=== PATIENT | male | born 1960 | race Caucasian/White ===

== ENCOUNTER 2022-04-16 21:30 | Emergency (ER) | payer OTHER ==
[2022-04-16 21:40] VITALS: BP 127/86; PULSE 91; TEMP 97.9; BMI 23.7
== END 2022-04-17 01:34 | disposition home or self-care (01) ==
LOC: JER 21:30
DX: S80.911A Unspecified superficial injury of right knee, initial encounter (principal); W10.9XXA Fall (on) (from) unspecified stairs and steps, initial encounter
CPT/HCPCS: 72170-TC-FY; 73552-TC-RT-FY; 73562-TC-RT-FY; 99285-25

== ENCOUNTER 2022-04-30 10:33 | Inpatient (IN) | payer OTHER ==
[2022-04-30] MEDS ORDERED: morphine CARPU-JECT 4 MG/1 ML DISP.SYRIN IVPUSH ONE (11:12)
[2022-04-30 12:03] LABS: BASO % 0.7 % (0-2.0); EOS % 1.9 % (0-4.5); HEMOGLOBIN 14.4 GM/dL (11.7-16.9); LYMPH % 17.8 % (8-40); MCH 28.8 pg (25.7-33.7); MCHC 33.5 g/dl (32.0-35.9); MEAN PLT VOLUME 6.6 fl (7.5-11.1); MONO % 6.5 % (3.8-10.2); NEUT % 73.1 % (42.8-82.8); PLATELET COUNT 306 10^3/uL (134-434); RDW 14.8 % (11.9-15.9); WHITE BLOOD COUNT 11.6 K/mm3 (4.0-10.0)
[2022-04-30] MEDS ORDERED: morphine SULFATE 4 MG/ML VIAL ONE (12:17)
[2022-04-30 12:23] LABS: INR 0.97 (0.83-1.09); PROTHROMBIN TIME (PATIENT) 11.2 SEC (9.7-13.0)
[2022-04-30 12:26] LABS: ACTIVATED PTT 26.4 SECONDS (25.2-36.5)
[2022-04-30 12:34] LABS: CALCIUM 9.4 mg/dL (8.5-10.1)
[2022-04-30 12:35] LABS: ALBUMIN 4.3 g/dl (3.4-5.0); BLOOD UREA NITROGEN 32.4 mg/dL (7-18)
[2022-04-30 12:38] LABS: CREATININE 1.1 mg/dL (0.55-1.3)
[2022-04-30 12:40] LABS: BILIRUBIN,TOTAL 0.3 mg/dL (0.2-1); TOT PROT 7.2 g/dl (6.4-8.2)
[2022-04-30] MEDS ORDERED: ACETAMINOPHEN 1000 MG/100 ML BAG IVPB PRN (12:47)
[2022-04-30] MEDS: MELATONIN 5 MG TABLETS PO PRN (22:34)
[2022-04-30] MEDS: clonazePAM 2 MG TABLET PO SCH (22:34)
[2022-04-30] MEDS: traZODone HCL 100 MG TABLET (FP) PO SCH (22:34)
[2022-05-01] MEDS ORDERED: IBUPROFEN 800 MG/8 ML IJ IVPB ONE (04:38)
[2022-05-01] MEDS: clonazePAM 2 MG TABLET PO SCH ×2 (09:27→21:59)
[2022-05-01 14:52] VITALS: BMI 21.7
[2022-05-01] MEDS ORDERED: ACETAMINOPHEN 325 MG TABLET (FP) PO PRN (18:04)
[2022-05-01] MEDS: traZODone HCL 100 MG TABLET (FP) PO SCH (21:59)
[2022-05-01] MEDS: HEPARIN NA (PORCINE) 5,000 UNITS/ML 1ML VIAL SQ SCH (21:59)
[2022-05-01] MEDS: MELATONIN 5 MG TABLETS PO PRN (21:59)
[2022-05-02] MEDS ORDERED: ACETAMINOPHEN 1000 MG/100 ML BAG IVPB ONE (00:07)
[2022-05-02 08:44] LABS: BASO % 0.7 % (0-2.0); EOS % 2.5 % (0-4.5); HEMATOCRIT 38.1 % (35.4-49); HEMOGLOBIN 12.8 GM/dL (11.7-16.9); LYMPH % 23.7 % (8-40); MCH 29.1 pg (25.7-33.7); MCHC 33.5 g/dl (32.0-35.9); MEAN CELL VOLUME 86.8 fl (80-96); MEAN PLT VOLUME 7.2 fl (7.5-11.1); MONO % 7.7 % (3.8-10.2); NEUT % 65.4 % (42.8-82.8); PLATELET COUNT 264 10^3/uL (134-434); RBC 4.39 M/mm3 (4.00-5.60); RDW 14.5 % (11.9-15.9); WHITE BLOOD COUNT 9.6 K/mm3 (4.0-10.0)
[2022-05-02 09:04] LABS: CALCIUM 9.2 mg/dL (8.5-10.1)
[2022-05-02 09:05] LABS: ALBUMIN 3.7 g/dl (3.4-5.0); BLOOD UREA NITROGEN 33.2 mg/dL (7-18)
[2022-05-02 09:08] LABS: CREATININE 1.1 mg/dL (0.55-1.3)
[2022-05-02 09:10] LABS: BILIRUBIN,TOTAL 0.3 mg/dL (0.2-1); TOT PROT 6.3 g/dl (6.4-8.2)
[2022-05-02] MEDS: HEPARIN NA (PORCINE) 5,000 UNITS/ML 1ML VIAL SQ SCH ×2 (11:13→21:16)
[2022-05-02] MEDS: clonazePAM 2 MG TABLET PO SCH ×2 (11:14→21:16)
[2022-05-02] MEDS: traZODone HCL 100 MG TABLET (FP) PO SCH (21:16)
[2022-05-02] MEDS: MELATONIN 5 MG TABLETS PO PRN (21:16)
[2022-05-03] MEDS: DOCUSATE SODIUM 100 MG CAPSULE (FP) PO SCH ×3 (09:25→21:36)
[2022-05-03] MEDS: POLYETHYLENE GLYCOL (HEALTHYLAX) 3350 17 GM PACKET PO SCH (09:25)
[2022-05-03] MEDS: clonazePAM 2 MG TABLET PO SCH ×2 (09:25→21:36)
[2022-05-03] MEDS: HEPARIN NA (PORCINE) 5,000 UNITS/ML 1ML VIAL SQ SCH ×2 (09:25→21:36)
[2022-05-03 10:55] LABS: BASO % 0.4 % (0-2.0); EOS % 2.2 % (0-4.5); HEMATOCRIT 37.9 % (35.4-49); HEMOGLOBIN 12.8 GM/dL (11.7-16.9); MCH 29.2 pg (25.7-33.7); MCHC 33.7 g/dl (32.0-35.9); MEAN CELL VOLUME 86.4 fl (80-96); MEAN PLT VOLUME 7.4 fl (7.5-11.1); MONO % 8.9 % (3.8-10.2); NEUT % 73.5 % (42.8-82.8); PLATELET COUNT 243 10^3/uL (134-434); RBC 4.39 M/mm3 (4.00-5.60); RDW 14.7 % (11.9-15.9); WHITE BLOOD COUNT 9.9 K/mm3 (4.0-10.0)
[2022-05-03 11:01] LABS: INR 0.97 (0.83-1.09); PROTHROMBIN TIME (PATIENT) 11.2 SEC (9.7-13.0)
[2022-05-03 11:19] LABS: CALCIUM 9.3 mg/dL (8.5-10.1)
[2022-05-03 11:20] LABS: ALBUMIN 3.7 g/dl (3.4-5.0); BLOOD UREA NITROGEN 32.8 mg/dL (7-18)
[2022-05-03 11:21] LABS: MAGNESIUM 1.8 mg/dL (1.8-2.4)
[2022-05-03 11:23] LABS: CREATININE 0.9 mg/dL (0.55-1.3)
[2022-05-03 11:24] LABS: BILIRUBIN,TOTAL 0.5 mg/dL (0.2-1); TOT PROT 6.6 g/dl (6.4-8.2)
[2022-05-03] MEDS: traZODone HCL 100 MG TABLET (FP) PO SCH (21:36)
[2022-05-03] MEDS: MELATONIN 5 MG TABLETS PO PRN (21:45)
[2022-05-04] MEDS: DOCUSATE SODIUM 100 MG CAPSULE (FP) PO SCH ×3 (05:10→21:14)
[2022-05-04] MEDS: clonazePAM 2 MG TABLET PO SCH ×2 (09:23→21:14)
[2022-05-04] MEDS: HEPARIN NA (PORCINE) 5,000 UNITS/ML 1ML VIAL SQ SCH ×2 (09:24→21:14)
[2022-05-04] MEDS: POLYETHYLENE GLYCOL (HEALTHYLAX) 3350 17 GM PACKET PO SCH (09:24)
[2022-05-04 10:06] LABS: BASO % 0.7 % (0-2.0); HEMATOCRIT 39.9 % (35.4-49); HEMOGLOBIN 13.4 GM/dL (11.7-16.9); LYMPH % 21.6 % (8-40); MCH 29.1 pg (25.7-33.7); MCHC 33.7 g/dl (32.0-35.9); MEAN CELL VOLUME 86.4 fl (80-96); MEAN PLT VOLUME 7.3 fl (7.5-11.1); MONO % 9.9 % (3.8-10.2); NEUT % 64.8 % (42.8-82.8); PLATELET COUNT 272 10^3/uL (134-434); RBC 4.62 M/mm3 (4.00-5.60); RDW 15.1 % (11.9-15.9); WHITE BLOOD COUNT 7.5 K/mm3 (4.0-10.0)
[2022-05-04 10:23] LABS: BLOOD UREA NITROGEN 23.7 mg/dL (7-18); CALCIUM 9.8 mg/dL (8.5-10.1)
[2022-05-04 10:24] LABS: ALBUMIN 3.9 g/dl (3.4-5.0)
[2022-05-04 10:27] LABS: CREATININE 0.9 mg/dL (0.55-1.3)
[2022-05-04 10:28] LABS: BILIRUBIN,TOTAL 0.6 mg/dL (0.2-1); TOT PROT 7.1 g/dl (6.4-8.2)
[2022-05-04] MEDS ORDERED: oxyCODONE HCL 5 MG TABLET PO PRN ×2 (12:25→14:48)
[2022-05-04] MEDS ORDERED: morphine CARPU-JECT 2 MG/1 ML DISP.SYRIN IVPUSH PRN (14:48)
[2022-05-04] MEDS: traZODone HCL 100 MG TABLET (FP) PO SCH (21:14)
[2022-05-04] MEDS: MELATONIN 5 MG TABLETS PO PRN (21:14)
[2022-05-05] MEDS: DOCUSATE SODIUM 100 MG CAPSULE (FP) PO SCH ×3 (06:33→21:30)
[2022-05-05 09:42] LABS: BASO % 0.8 % (0-2.0); EOS % 2.9 % (0-4.5); HEMATOCRIT 41.9 % (35.4-49); HEMOGLOBIN 14.3 GM/dL (11.7-16.9); LYMPH % 24.2 % (8-40); MCH 29.5 pg (25.7-33.7); MCHC 34.1 g/dl (32.0-35.9); MEAN CELL VOLUME 86.4 fl (80-96); MONO % 10.6 % (3.8-10.2); NEUT % 61.5 % (42.8-82.8); PLATELET COUNT 265 10^3/uL (134-434); RBC 4.85 M/mm3 (4.00-5.60); RDW 14.5 % (11.9-15.9); WHITE BLOOD COUNT 9.1 K/mm3 (4.0-10.0)
[2022-05-05 09:58] LABS: INR 1.03 (0.83-1.09); PROTHROMBIN TIME (PATIENT) 11.9 SEC (9.7-13.0)
[2022-05-05 10:01] LABS: ALBUMIN 3.9 g/dl (3.4-5.0); BLOOD UREA NITROGEN 31.4 mg/dL (7-18); CALCIUM 9.7 mg/dL (8.5-10.1)
[2022-05-05 10:03] LABS: CREATININE 1.1 mg/dL (0.55-1.3)
[2022-05-05 10:05] LABS: BILIRUBIN,TOTAL 0.4 mg/dL (0.2-1); TOT PROT 7.2 g/dl (6.4-8.2)
[2022-05-05] MEDS: POLYETHYLENE GLYCOL (HEALTHYLAX) 3350 17 GM PACKET PO SCH (10:57)
[2022-05-05] MEDS: clonazePAM 2 MG TABLET PO SCH ×2 (10:57→21:29)
[2022-05-05] MEDS: HEPARIN NA (PORCINE) 5,000 UNITS/ML 1ML VIAL SQ SCH (11:36)
[2022-05-05] MEDS: traZODone HCL 100 MG TABLET (FP) PO SCH (21:29)
[2022-05-06] MEDS: DOCUSATE SODIUM 100 MG CAPSULE (FP) PO SCH ×3 (06:13→22:41)
[2022-05-06] MEDS ORDERED: THROMBIN (BOVINE) 20,000 UNIT VIAL TP ONE ×2 (07:23→09:00)
[2022-05-06] MEDS ORDERED: ceFAZolin SODIUM 1 GM VIAL ONE ×4 (07:24→21:09)
[2022-05-06] MEDS ORDERED: BACITRACIN 15 GM TUBE TOPICAL OINTMENT ONE (07:24)
[2022-05-06] MEDS ORDERED: BUPIVACAINE HCL/PF 0.25% (2.5MG/ML) 10 ML VIAL ONE (07:24)
[2022-05-06] MEDS ORDERED: VANCOMYCIN 1,000 MG VIAL (RESTRICTED TO ID ONLY) ONE (07:28)
[2022-05-06] MEDS ORDERED: PROPOFOL 20 ML ONE ×5 (07:39→07:43)
[2022-05-06] MEDS ORDERED: ROCURONIUM BROMIDE 50 MG/5 ML SYRINGE ONE (07:39)
[2022-05-06] MEDS ORDERED: MIDAZOLAM HCL 2 MG/2 ML SINGLE DOSE VIAL ONE ×2 (07:40)
[2022-05-06] MEDS ORDERED: SUCCINYLCHOLINE CHLORIDE 200 MG/10 ML SYRINGE ONE (07:42)
[2022-05-06] MEDS ORDERED: ceFAZolin SODIUM 1 GM VIAL IVPB ONE ×7 (08:21→17:00)
[2022-05-06] MEDS ORDERED: ePHEDrine SULFATE 50 MG/1 ML AMPULE ONE (08:33)
[2022-05-06] MEDS ORDERED: ceFAZolin 2 GRAM PREMIX BAG IVPB ONE (08:34)
[2022-05-06] MEDS ORDERED: THROMBIN (BOVINE) 5,000 UNIT VIAL TP ONE ×2 (08:35→09:00)
[2022-05-06] MEDS ORDERED: HYDROmorphone HCl 2 MG/ML VIAL ONE (09:34)
[2022-05-06] MEDS: POLYETHYLENE GLYCOL (HEALTHYLAX) 3350 17 GM PACKET PO SCH (10:00)
[2022-05-06] MEDS: clonazePAM 2 MG TABLET PO SCH ×2 (10:00→22:41)
[2022-05-06] MEDS ORDERED: NALOXONE HCL 0.4 MG/ML VIAL ONE (11:20)
[2022-05-06] MEDS ORDERED: diazePAM 2 MG TABLET PO PRN (11:31)
[2022-05-06] MEDS ORDERED: ONDANSETRON 4 MG/2 ML VIAL IVPUSH PRN ×2 (11:34→11:35)
[2022-05-06] MEDS ORDERED: SODIUM CHLORIDE 1,000 ML IV SCH (11:45)
[2022-05-06] MEDS ORDERED: LACTATED RINGERS SOLUTION 1,000 ML IV SCH (11:45)
[2022-05-06] MEDS ORDERED: HYDROmorphone *PCA* 10MG/50ML DISP.SYRIN PCA ONE (12:00)
[2022-05-06] MEDS: HYDROmorphone *PCA* 10MG/50ML DISP.SYRIN PCA SCH (12:00)
[2022-05-06] MEDS ORDERED: FENTANYL CITRATE/PF 50 MCG/ML VIAL ONE (12:32)
[2022-05-06] MEDS ORDERED: LACTATED RINGERS SOLUTION 1,000 ML/1,000 ML INFUS.BAG IV SCH (13:00)
[2022-05-06] MEDS: ACETAMINOPHEN 1000 MG/100 ML BAG IVPB SCH ×3 (18:03→23:47)
[2022-05-06] MEDS: CEFAZOLIN 1 GM in DEXTROSE 5%-WATER - 1 GM/50 ML IVPB IVPB SCH (18:04)
[2022-05-06 19:58] LABS: BASO % 0.2 % (0-2.0); HEMATOCRIT 37.4 % (35.4-49); HEMOGLOBIN 12.6 GM/dL (11.7-16.9); LYMPH % 3.8 % (8-40); MCH 28.8 pg (25.7-33.7); MCHC 33.6 g/dl (32.0-35.9); MEAN CELL VOLUME 85.7 fl (80-96); MEAN PLT VOLUME 7.2 fl (7.5-11.1); MONO % 6.3 % (3.8-10.2); NEUT % 89.7 % (42.8-82.8); PLATELET COUNT 302 10^3/uL (134-434); RBC 4.36 M/mm3 (4.00-5.60); RDW 14.4 % (11.9-15.9); WHITE BLOOD COUNT 17.8 K/mm3 (4.0-10.0)
[2022-05-06 20:12] LABS: INR 1.12 (0.83-1.09); PROTHROMBIN TIME (PATIENT) 12.9 SEC (9.7-13.0)
[2022-05-06 20:13] LABS: ALBUMIN 3.7 g/dl (3.4-5.0); CALCIUM 9.4 mg/dL (8.5-10.1); MAGNESIUM 1.9 mg/dL (1.8-2.4)
[2022-05-06 20:17] LABS: BILIRUBIN,TOTAL 0.5 mg/dL (0.2-1); CREATININE 1.1 mg/dL (0.55-1.3)
[2022-05-06 20:19] LABS: TOT PROT 6.6 g/dl (6.4-8.2)
[2022-05-06] MEDS ORDERED: DEXTROSE 5%-WATER - 50 ML IVPB ONE (21:09)
[2022-05-06] MEDS: traZODone HCL 100 MG TABLET (FP) PO SCH (22:41)
[2022-05-06] MEDS: CYCLOBENZAPRINE HCL 5 MG TABLET PO PRN (22:42)
[2022-05-07] MEDS: CEFAZOLIN 1 GM in DEXTROSE 5%-WATER - 1 GM/50 ML IVPB IVPB SCH ×2 (01:20→10:10)
[2022-05-07] MEDS: ACETAMINOPHEN 1000 MG/100 ML BAG IVPB SCH (05:51)
[2022-05-07] MEDS: DOCUSATE SODIUM 100 MG CAPSULE (FP) PO SCH ×3 (05:51→22:24)
[2022-05-07 09:02] LABS: BASO % 0.3 % (0-2.0); EOS % 0.5 % (0-4.5); HEMATOCRIT 31.8 % (35.4-49); LYMPH % 13.3 % (8-40); MCH 29.8 pg (25.7-33.7); MCHC 34.6 g/dl (32.0-35.9); MEAN PLT VOLUME 7.1 fl (7.5-11.1); MONO % 13.7 % (3.8-10.2); NEUT % 72.2 % (42.8-82.8); PLATELET COUNT 226 10^3/uL (134-434); RBC 3.69 M/mm3 (4.00-5.60); RDW 14.6 % (11.9-15.9); WHITE BLOOD COUNT 12.5 K/mm3 (4.0-10.0)
[2022-05-07 09:45] LABS: BILIRUBIN,TOTAL 0.7 mg/dL (0.2-1); BLOOD UREA NITROGEN 23.3 mg/dL (7-18)
[2022-05-07 09:47] LABS: ALBUMIN 3.3 g/dl (3.4-5.0); CALCIUM 8.6 mg/dL (8.5-10.1); TOT PROT 5.9 g/dl (6.4-8.2)
[2022-05-07] MEDS ORDERED: DEXTROSE 5%-WATER - 50 ML IVPB ONE (10:04)
[2022-05-07] MEDS ORDERED: ceFAZolin SODIUM 1 GM VIAL ONE (10:04)
[2022-05-07] MEDS: POLYETHYLENE GLYCOL (HEALTHYLAX) 3350 17 GM PACKET PO SCH (10:10)
[2022-05-07] MEDS: clonazePAM 2 MG TABLET PO SCH ×2 (10:11→22:25)
[2022-05-07] MEDS ORDERED: ACETAMINOPHEN 500 MG TABLET (FP) PO PRN (11:24)
[2022-05-07] MEDS: LACTATED RINGERS SOLUTION 1,000 ML/1,000 ML INFUS.BAG IV SCH (12:02)
[2022-05-07] MEDS: HYDROmorphone *PCA* 10MG/50ML DISP.SYRIN PCA SCH (12:54)
[2022-05-07] MEDS: CYCLOBENZAPRINE HCL 5 MG TABLET PO PRN (13:39)
[2022-05-07] MEDS: traZODone HCL 100 MG TABLET (FP) PO SCH (22:25)
[2022-05-07] MEDS: HEPARIN NA (PORCINE) 5,000 UNITS/ML 1ML VIAL SQ SCH (22:26)
[2022-05-08] MEDS: DOCUSATE SODIUM 100 MG CAPSULE (FP) PO SCH (06:21)
[2022-05-08] MEDS: HYDROmorphone *PCA* 10MG/50ML DISP.SYRIN PCA SCH ×2 (06:48→12:00)
[2022-05-08] MEDS: LACTATED RINGERS SOLUTION 1,000 ML/1,000 ML INFUS.BAG IV SCH ×2 (06:49→21:40)
[2022-05-08 09:22] LABS: BASO % 0.2 % (0-2.0); EOS % 0.4 % (0-4.5); HEMATOCRIT 34.4 % (35.4-49); HEMOGLOBIN 11.6 GM/dL (11.7-16.9); LYMPH % 7.5 % (8-40); MCH 29.2 pg (25.7-33.7); MCHC 33.7 g/dl (32.0-35.9); MEAN CELL VOLUME 86.7 fl (80-96); MEAN PLT VOLUME 7.8 fl (7.5-11.1); MONO % 13.1 % (3.8-10.2); NEUT % 78.8 % (42.8-82.8); PLATELET COUNT 260 10^3/uL (134-434); RBC 3.97 M/mm3 (4.00-5.60); RDW 15.1 % (11.9-15.9); WHITE BLOOD COUNT 13.9 K/mm3 (4.0-10.0)
[2022-05-08] MEDS: HEPARIN NA (PORCINE) 5,000 UNITS/ML 1ML VIAL SQ SCH ×2 (10:28→21:59)
[2022-05-08] MEDS: POLYETHYLENE GLYCOL (HEALTHYLAX) 3350 17 GM PACKET PO SCH (10:28)
[2022-05-08] MEDS: clonazePAM 2 MG TABLET PO SCH ×2 (10:29→21:59)
[2022-05-08 10:58] LABS: ALBUMIN 3.5 g/dl (3.4-5.0); BLOOD UREA NITROGEN 15.8 mg/dL (7-18); CALCIUM 9.1 mg/dL (8.5-10.1); MAGNESIUM 2.1 mg/dL (1.8-2.4)
[2022-05-08 11:00] LABS: CREATININE 0.8 mg/dL (0.55-1.3)
[2022-05-08 11:02] LABS: TOT PROT 6.6 g/dl (6.4-8.2)
[2022-05-08] MEDS ORDERED: oxyCODONE HCL 5 MG TABLET PO PRN ×2 (11:55)
[2022-05-08] MEDS ORDERED: DOCUSATE SODIUM 100 MG CAPSULE (FP) PO SCH (22:00)
[2022-05-08] MEDS: traZODone HCL 100 MG TABLET (FP) PO SCH (22:00)
[2022-05-09] MEDS ORDERED: ACETAMINOPHEN 500 MG TABLET (FP) PO PRN ×2 (08:24→08:42)
[2022-05-09] MEDS ORDERED: oxyCODONE HCL 5 MG TABLET PO PRN (08:24)
[2022-05-09 09:22] LABS: BASO % 0.5 % (0-2.0); EOS % 1.5 % (0-4.5); HEMATOCRIT 32.8 % (35.4-49); HEMOGLOBIN 11.1 GM/dL (11.7-16.9); LYMPH % 13.2 % (8-40); MCH 29.4 pg (25.7-33.7); MEAN CELL VOLUME 86.4 fl (80-96); MEAN PLT VOLUME 7.7 fl (7.5-11.1); MONO % 14.2 % (3.8-10.2); NEUT % 70.6 % (42.8-82.8); PLATELET COUNT 279 10^3/uL (134-434); RBC 3.79 M/mm3 (4.00-5.60); RDW 14.6 % (11.9-15.9); WHITE BLOOD COUNT 10.2 K/mm3 (4.0-10.0)
[2022-05-09] MEDS ORDERED: chlorproMAZINE HCL 25 MG TABLET PO PRN (10:07)
[2022-05-09] MEDS: POLYETHYLENE GLYCOL (HEALTHYLAX) 3350 17 GM PACKET PO SCH (10:21)
[2022-05-09] MEDS: HEPARIN NA (PORCINE) 5,000 UNITS/ML 1ML VIAL SQ SCH (10:21)
[2022-05-09] MEDS: clonazePAM 2 MG TABLET PO SCH (10:21)
[2022-05-09 10:27] LABS: CALCIUM 9.2 mg/dL (8.5-10.1)
[2022-05-09 10:28] LABS: ALBUMIN 3.2 g/dl (3.4-5.0); BLOOD UREA NITROGEN 23.7 mg/dL (7-18); MAGNESIUM 2.1 mg/dL (1.8-2.4)
[2022-05-09 10:31] LABS: CREATININE 0.8 mg/dL (0.55-1.3)
[2022-05-09 10:32] LABS: BILIRUBIN,TOTAL 0.5 mg/dL (0.2-1); TOT PROT 6.5 g/dl (6.4-8.2)
[2022-05-09 16:02] VITALS: BP 126/75; PULSE 81; TEMP 98.6
[2022-05-09] MEDS: CYCLOBENZAPRINE HCL 5 MG TABLET PO PRN (18:59)
== END 2022-05-09 20:00 | DRG 453 ==
LOC: JER 10:33 → JERBED 11:24 → J5S 18:09 → J8W 05-06 17:04
PROVIDERS: ADMIT Internal Medicine; ATTEND Nurse Practitioner Family
PROC: 0SG30AJ Fusion of Lumbosacral Joint with Interbody Fusion Device, Posterior Approach, Anterior Column, Open Approach (ICD-10-PCS; 2022-05-06)
PROC: 0SG00AJ Fusion of Lumbar Vertebral Joint with Interbody Fusion Device, Posterior Approach, Anterior Column, Open Approach (ICD-10-PCS; 2022-05-06)
PROC: 0SG3071 Fusion of Lumbosacral Joint with Autologous Tissue Substitute, Posterior Approach, Posterior Column, Open Approach (ICD-10-PCS; 2022-05-06)
PROC: 0ST20ZZ Resection of Lumbar Vertebral Disc, Open Approach (ICD-10-PCS; 2022-05-06)
PROC: 01NB0ZZ Release Lumbar Nerve, Open Approach (ICD-10-PCS; 2022-05-06)
PROC: 0ST40ZZ Resection of Lumbosacral Disc, Open Approach (ICD-10-PCS; 2022-05-06)
PROC: 0SP00AZ Removal of Interbody Fusion Device from Lumbar Vertebral Joint, Open Approach (ICD-10-PCS; 2022-05-06)
PROC: 0SP30AZ Removal of Interbody Fusion Device from Lumbosacral Joint, Open Approach (ICD-10-PCS; 2022-05-06)
PROC: 4A11X4G Monitoring of Peripheral Nervous Electrical Activity, Intraoperative, External Approach (ICD-10-PCS; 2022-05-06)
PROC: 0SG0071 Fusion of Lumbar Vertebral Joint with Autologous Tissue Substitute, Posterior Approach, Posterior Column, Open Approach (ICD-10-PCS; principal; 2022-05-06 08:01)
DX: M96.0 Pseudarthrosis after fusion or arthrodesis (principal); U07.1 COVID-19; M54.16 Radiculopathy, lumbar region; M21.371 Foot drop, right foot; M54.41 Lumbago with sciatica, right side; G89.29 Other chronic pain; F41.9 Anxiety disorder, unspecified; R53.1 Weakness; R26.2 Difficulty in walking, not elsewhere classified; Y83.8 Other surgical procedures as the cause of abnormal reaction of the patient, or of later complication, without mention of misadventure at the time of the procedure
CPT/HCPCS: 36415; 71045-TC-FY; 72050-TC-FY; 72100-TC-FY; 72141-TC; 76000-TC-FY; 80053; 83036; 83735; 85025; 85610; 85730; 86140; 86850; 86900; 86901; 93005; 93010; 93306-TC; 94760; 97116-GP; 97162-GP; 99285-25; C9803-CS; J1644; U0003; U0005